=== PATIENT | female | born 2000 | race African-American/Black ===

== ENCOUNTER → 2020-05-13 | Emergency (ER) | payer OTHER ==
[~2020-05-13] VITALS: Ht 162.6 cm; Wt 74.8 kg
[2020-05-13 19:03] LABS: Basophils # (auto) 0.1 10 ^3/uL (0-0.2); Basophils % (auto) 0.7 % (0.0-2.0); Eosinophils # (auto) 0.2 10 ^3/uL (0-0.8); Eosinophils % (auto) 1.5 % (0.0-7.0); Hematocrit 41.6 % (36.0-46.0); Hemoglobin 13.4 g/dL (12.2-16.2); Lymphocytes # (auto) 2.6 10 ^3/uL (0.4-5.4); Lymphocytes % (auto) 19.6 % (10.0-50.0); Mean Corpuscular Hemoglobin 28.7 pg (28.0-32.0); Mean Corpuscular Hgb Conc. 32.3 g/dL (32.0-36.0); Mean Corpuscular Volume 88.9 fL (80.0-100.0); Monocytes # (auto) 1.1 10 ^3/uL (0-1.3); Monocytes % (auto) 8.1 % (0.0-12.0); Neutrophils # (auto) 9.2 10 ^3/uL (1.6-8.6); Neutrophils % (auto) 70.1 % (37.0-80.0); Platelet Count (auto) 400 10^3/uL (140-450); Red Blood Cells 4.68 10^6/uL (4.0-5.20); Red Cell Distribution Width 13.6 % (11.8-14.3); White Blood Cell 13.2 10^3/uL (4.4-10.8)
[2020-05-13 19:15] LABS: Urine Bacteria NONE SEEN /hpf (None Seen); Urine Blood Negative /uL (Negative); Urine Specific Gravity 1.012 (1.001-1.035); Urine WBC 2 /hpf (0 - 5)
[2020-05-13 19:21] LABS: Albumin 3.7 g/dL (3.4-5.0); Calcium 9.5 mg/dL (8.5-10.1); Potassium 3.7 mmol/L (3.5-5.1)
[2020-05-13 19:25] LABS: BUN/Creatinine Ratio 7.4; Bilirubin, Total 0.2 mg/dL (0.2-1.0); Total Protein 8.2 g/dL (6.4-8.2)
[2020-05-13 19:34] VITALS: BP 108/80
== END | disposition home or self-care (01) ==
LOC: ER 18:33
DX: O23.41 Unspecified infection of urinary tract in pregnancy, first trimester (principal); O20.0 Threatened abortion; O26.891 Other specified pregnancy related conditions, first trimester; R11.2 Nausea with vomiting, unspecified; R51 Headache; Z3A.10 10 weeks gestation of pregnancy
CPT/HCPCS: 36415; 76801; 80053; 81001; 83690; 84702; 85025

== ENCOUNTER 2020-06-10 12:43 | Emergency (ER) | payer OTHER ==
[~2020-06-10] VITALS: Ht 162.6 cm; Wt 74.4 kg
[2020-06-10 13:35] LABS: Basophils # (auto) 0.1 10 ^3/uL (0-0.2); Basophils % (auto) 0.8 % (0.0-2.0); Eosinophils # (auto) 0.2 10 ^3/uL (0-0.8); Eosinophils % (auto) 1.2 % (0.0-7.0); Hematocrit 38.5 % (36.0-46.0); Hemoglobin 12.6 g/dL (12.2-16.2); Lymphocytes # (auto) 2.3 10 ^3/uL (0.4-5.4); Lymphocytes % (auto) 17.1 % (10.0-50.0); Mean Corpuscular Hemoglobin 29.1 pg (28.0-32.0); Mean Corpuscular Hgb Conc. 32.9 g/dL (32.0-36.0); Mean Corpuscular Volume 88.4 fL (80.0-100.0); Monocytes # (auto) 0.9 10 ^3/uL (0-1.3); Monocytes % (auto) 6.7 % (0.0-12.0); Neutrophils % (auto) 74.2 % (37.0-80.0); Platelet Count (auto) 403 10^3/uL (140-450); Red Blood Cells 4.35 10^6/uL (4.0-5.20); Red Cell Distribution Width 13.4 % (11.8-14.3); White Blood Cell 13.5 10^3/uL (4.4-10.8)
[2020-06-10 15:46] VITALS: BP 125/73
== END 2020-06-10 14:40 | disposition home or self-care (01) ==
LOC: ER 12:43
DX: O20.0 Threatened abortion (principal); Z3A.10 10 weeks gestation of pregnancy
CPT/HCPCS: 36415; 76801; 84702; 85025

== ENCOUNTER 2024-03-30 17:00 | Emergency (ER) | payer MEDICAID, OTHER ==
[~2024-03-30] VITALS: Ht 162.6 cm; Wt 76.3 kg
[2024-03-30 18:27] LABS: Urine Bacteria None Seen /hpf (None Seen)
[2024-03-30 18:46] LABS: Urine Blood Negative /uL (Negative); Urine Clarity Cloudy (Clear); Urine Color Yellow (Yellow); Urine Mucus FEW (None Seen); Urine Protein, UAD 1+ (Negative); Urine Specific Gravity 1.032 (1.001-1.035); Urine Urobilinogen Normal (Negative); Urine WBC 1 /hpf (0 - 5); Urine pH 6.5 (5.0-9.0)
[2024-03-30 18:59] LABS: Amphetamine Screen, Urine Neg (NEGATIVE)
[2024-03-30 19:00] LABS: Barbiturate Scree,Urine Neg (NEGATIVE); Benzodiazephine Screen, Urine Neg (NEGATIVE); Cannabinoid Screen, Urine Neg (NEGATIVE); Cocaine Screen, Urine Neg (NEGATIVE); Opiate Scree,Urine Neg (NEGATIVE); Phencyclidine Screen, Urine Neg (NEGATIVE)
[2024-03-30 19:01] LABS: Basophils # (auto) 0.1 10 ^3/uL (0-0.2); Basophils % (auto) 0.4 % (0.0-2.0); Eosinophils # (auto) 0.1 10 ^3/uL (0-0.8); Eosinophils % (auto) 0.3 % (0.0-7.0); Hemoglobin 10.5 g/dL (12.2-16.2); Lymphocytes # (auto) 2.8 10 ^3/uL (0.4-5.4); Mean Corpuscular Hgb Conc. 30.9 g/dL (32.0-36.0); Mean Corpuscular Volume 74.4 fL (80.0-100.0); Monocytes # (auto) 1.1 10 ^3/uL (0-1.3); Monocytes % (auto) 5.8 % (0.0-12.0); Neutrophils # (auto) 14.6 10 ^3/uL (1.6-8.6); Neutrophils % (auto) 78.5 % (37.0-80.0); Red Blood Cells 4.57 10^6/uL (4.0-5.20); White Blood Cell 18.7 10^3/uL (4.4-10.8)
[2024-03-30 19:04] LABS: Red Cell Distribution Width 20.9 % (11.8-14.3)
[2024-03-30 19:19] LABS: Acetaminophen < 2.0 UG/ML (10.0-20.0)
[2024-03-30 19:21] LABS: Salicylate < 3.0 mg/dL (2.8-20.0)
[2024-03-30 19:27] LABS: Anisocytosis Slight
[2024-03-30 19:28] LABS: Hypochromia Slight; Platelet Estimate Adequate
[2024-03-30 20:12] LABS: Alanine Aminotransferase 16 U/L (7-40); Alkaline Phosphatase 53 U/L (46-116); Anion Gap 11 (5-15); Blood Alcohol 5.9 mg/dL (<10); Calcium 9.8 mg/dL (8.7-10.4); Carbon Dioxide 24 mmol/L (20-30); Chloride 102 mmol/L (98-107); Glucose 84 mg/dL (74-106); Potassium 3.9 mmol/L (3.5-5.1); Sodium 137 mmol/L (136-145)
[2024-03-30 20:13] LABS: Albumin 4.9 g/dL (3.2-4.8); Aspartate Aminotransferase 10 U/L (13-40); BUN/Creatinine Ratio 6.8 (10.0-20.0); Bilirubin, Total 0.4 mg/dL (0.2-1.0); Blood Urea Nitrogen 5 mg/dL (9-23); Total Protein 7.7 g/dL (5.7-8.2)
[2024-03-30 22:45] VITALS: BP 143/86; PULSE 75; RESP 14; TEMP 98.8; O2SAT 100
== END 2024-03-30 23:47 | disposition left against medical advice (07) ==
LOC: ER 17:00
DX: R55 Syncope and collapse (principal); R10.2 Pelvic and perineal pain; Z87.891 Personal history of nicotine dependence; Z79.899 Other long term (current) drug therapy
CPT/HCPCS: 36415; 80053; 80307; 80320; 80329; 81001; 84484; 84702; 85025

== ENCOUNTER 2025-05-01 10:23 | Emergency (ER) | payer MEDICAID, OTHER ==
[~2025-05-01] VITALS: Ht 162.6 cm; Wt 68.4 kg
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
[2025-05-01 11:33] LABS: Hematocrit 47.3 % (36.0-46.0); Hemoglobin 15.8 g/dL (12.2-16.2); Mean Corpuscular Hemoglobin 30.1 pg (28.0-32.0); Mean Corpuscular Volume 90.2 fL (80.0-100.0); Nucleated Red Blood Cells % 0.1 %
[2025-05-01 11:48] LABS: Alanine Aminotransferase 29 U/L (7-40); Alkaline Phosphatase 84 U/L (46-116); Anion Gap 12 (5-15); Calcium 9.7 mg/dL (8.7-10.4); Carbon Dioxide 26 mmol/L (20-31); Chloride 99 mmol/L (98-107); Potassium 4.6 mmol/L (3.5-5.1); Sodium 137 mmol/L (136-145)
[2025-05-01 11:51] LABS: Albumin 5.1 g/dL (3.2-4.8); BUN/Creatinine Ratio 5.8 (10.0-20.0); Bilirubin, Total 1.2 mg/dL (0.2-1.0); Blood Urea Nitrogen < 5 mg/dL (9-23); Glucose 106 mg/dL (74-106); Lipase 180 U/L (12-53); Total Protein 8.8 g/dL (5.7-8.2)
[2025-05-01 15:07] LABS: Urine Protein, UAD 2+ (Negative)
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
[2025-05-01] MEDS: ONDANSETRON HCL 4 MG/2 ML VIAL IV ONE ×3 (15:37→21:30)
[2025-05-01] MEDS: MORPHINE SULFATE 4 MG/ML SYR/VIAL IV ONE ×2 (15:37→17:28)
[2025-05-01] MEDS: SODIUM CHLORIDE 0.9% 2,000 ML IV ONE (15:37)
[2025-05-01] MEDS: LORazepam 2MG/ML-1ML VIAL IV ONE (15:37)
[2025-05-01] MEDS: PIPERACILLIN-TAZO 4.5GM 100 ML IV ONE (16:29)
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
[2025-05-01] MEDS: HYDROmorphone HCL 2 MG/ML VL/or syr IV ONE (21:30)
[2025-05-01 22:29] VITALS: PULSE 100; RESP 20; O2SAT 97
[2025-05-01 23:10] VITALS: BP 130/82; PULSE 98; RESP 20; TEMP 98.1; O2SAT 98
== END 2025-05-01 23:01 | disposition short-term general hospital (02) ==
LOC: ER 10:23
DX: S39.81XA Other specified injuries of abdomen, initial encounter (principal); K52.9 Noninfective gastroenteritis and colitis, unspecified; K85.90 Acute pancreatitis without necrosis or infection, unspecified; R11.2 Nausea with vomiting, unspecified; R07.81 Pleurodynia; X58.XXXA Exposure to other specified factors, initial encounter; Y93.89 Activity, other specified; Y92.89 Other specified places as the place of occurrence of the external cause; Y99.8 Other external cause status; F17.200 Nicotine dependence, unspecified, uncomplicated; F41.9 Anxiety disorder, unspecified
CPT/HCPCS: 36415; 70450; 71111; 71250; 72125; 72131; 74176; 80053; 81001; 82150; 83690; 85025; 96361; 96365; 96375; 96376; 99291; J1171; J2060; J2270; J2405; J2543; J7030

== ENCOUNTER 2025-08-03 21:53 | Inpatient (IN) | payer SELFPAY ==
[~2025-08-03] VITALS: Ht 162.6 cm; Wt 77.1 kg
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
[2025-08-03 22:53] LABS: Hematocrit 41.5 % (36.0-46.0); Hemoglobin 13.7 g/dL (12.2-16.2); Mean Corpuscular Hemoglobin 30.3 pg (28.0-32.0); Mean Corpuscular Volume 91.4 fL (80.0-100.0); Nucleated Red Blood Cells % 0.2 %
--- NOTE | 2025-08-03 22:53 | DVH ---
CLINICAL HISTORY: sob TECHNIQUE: AP view of the chest was obtained. WID: COMPARISON: CT CHEST WITHOUT CONTRAST on DOS: 05/01/25, XY RIBS BILATERAL on DOS: 05/01/25 FINDINGS: Lungs: clear Cardiomediastinal silhouette: normal in size Bones: No acute osseous abnormality. Imaged Upper Abdomen: unremarkable. IMPRESSION: NO ACUTE CARDIOPULMONARY PROCESS.
[2025-08-03 23:06] LABS: Urine Protein, UAD Negative (Negative)
[2025-08-03 23:12] LABS: Alanine Aminotransferase 17 U/L (7-40); Albumin 4.4 g/dL (3.2-4.8); Alkaline Phosphatase 101 U/L (46-116); Anion Gap 12 (5-15); BUN/Creatinine Ratio 6.9 (10.0-20.0); Calcium 9.1 mg/dL (8.7-10.4); Carbon Dioxide 27 mmol/L (20-31); Chloride 104 mmol/L (98-107); Glucose 90 mg/dL (74-106); Magnesium 2.2 mg/dL (1.6-2.6); Potassium 3.7 mmol/L (3.5-5.1); Sodium 143 mmol/L (136-145); Total Protein 7.9 g/dL (5.7-8.2)
[2025-08-03 23:13] LABS: Bilirubin, Total 0.3 mg/dL (0.2-1.0)
[2025-08-03 23:18] LABS: Blood Urea Nitrogen 6 mg/dL (9-23)
[2025-08-03 23:20] LABS: Amphetamine Screen, Urine Neg (NEGATIVE); Barbiturate Scree,Urine Neg (NEGATIVE); Benzodiazephine Screen, Urine Neg (NEGATIVE); Cannabinoid Screen, Urine Neg (NEGATIVE); Cocaine Screen, Urine Neg (NEGATIVE); Opiate Scree,Urine Neg (NEGATIVE); Phencyclidine Screen, Urine Neg (NEGATIVE)
[2025-08-03 23:22] LABS: Lactic Acid w/Reflex 2.5 mmol/L (0.4-2.0)
[2025-08-04] VITALS (9 sets, daily range): BP systolic 140–147; BP diastolic 91–103; PULSE 81–122; RESP 16–21; TEMP 98–98.7; O2SAT 99–100
[2025-08-04 00:04] LABS: INR 1.03 (0.9-1.15); Partial Thromboplastin Time 29.3 SEC (24.5-34.5); Prothrombin Time 10.9 sec (9.3-11.8)
[2025-08-04] MEDS: SODIUM CHLORIDE 0.9% 1,000 ML IV ONE ×2 (00:36→00:50)
[2025-08-04] MEDS: LACTATED RINGER'S 1,650 ML IV ONE (00:50)
[2025-08-04] MEDS: SODIUM CHLORIDE 0.9% 1,650 ML IV ONE (00:53)
[2025-08-04] MEDS ORDERED: VANCOMYCIN PER PHARMACY 0 MG IV SCH (01:00)
[2025-08-04] MEDS ORDERED: ONDANSETRON HCL 4 MG/2 ML VIAL IV PRN (01:00)
[2025-08-04] MEDS ORDERED: NITROGLYCERIN 0.4 MG SL TAB SL PRN (01:00)
[2025-08-04] MEDS ORDERED: DOCUSATE SOD 100 MG CAP PO PRN (01:00)
[2025-08-04] MEDS ORDERED: MORPHINE SULFATE INJ 2 MG/ml SYRG IV PRN (01:00)
[2025-08-04] MEDS ORDERED: ACETAMINOPHEN 325 MG TAB PO PRN (01:00)
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
[2025-08-04] MEDS: VANCOMYCIN 1GM/250ML KIT 250 ML IV ONE (01:50)
[2025-08-04 01:51] LABS: Rapid Strep A Screen-Throat Positive
[2025-08-04] MEDS: methylPREDNISolone SOD SUCC 125 MG/2 ML VL IV ONE (02:29)
[2025-08-04] MEDS: HYDROcodone-ACET 5/325MG TAB PO PRN (02:30)
[2025-08-04 04:21] LABS: Hematocrit 38.2 % (36.0-46.0); Hemoglobin 12.6 g/dL (12.2-16.2); Mean Corpuscular Hemoglobin 30.3 pg (28.0-32.0); Mean Corpuscular Volume 92.0 fL (80.0-100.0); Nucleated Red Blood Cells % 0.0 %
[2025-08-04 04:41] LABS: Alanine Aminotransferase 16 U/L (7-40); Albumin 4.1 g/dL (3.2-4.8); Alkaline Phosphatase 96 U/L (46-116); Anion Gap 11 (5-15); BUN/Creatinine Ratio 9.8 (10.0-20.0); Carbon Dioxide 24 mmol/L (20-31); Chloride 106 mmol/L (98-107); Glucose 85 mg/dL (74-106); Potassium 4.0 mmol/L (3.5-5.1); Sodium 141 mmol/L (136-145); Total Protein 7.3 g/dL (5.7-8.2)
[2025-08-04 04:56] LABS: Bilirubin, Total 0.3 mg/dL (0.2-1.0); Blood Urea Nitrogen 6 mg/dL (9-23); Calcium 7.8 mg/dL (8.7-10.4)
[2025-08-04] MEDS: SODIUM CHLOR 0.9% PF (SALINE LOCK) 10ML VIAL/SYR IV SCH (06:46)
[2025-08-04] MEDS: LEVALBUTEROL HCL 1.25 MG/3 ML NEB NEB SCH (06:53)
[2025-08-04] MEDS: ALBUTEROL SULF 2.5 MG/0.5ML(0.5%) NEB SOLN NEB ONE (08:16)
[2025-08-04] MEDS: IPRATROPIUM BROM 0.5 MG/2.5ML INH SOL NEB ONE (08:17)
[2025-08-04] MEDS: VANCOMYCIN 1.25GM/250ML 250 ML IV SCH (14:36)
[2025-08-04] MEDS: methylPREDNISolone SOD SUCC 40 MG/ML VL IV SCH (14:36)
[2025-08-04] MEDS: FAMOTIDINE (10MG/ML) 2ML VL IV SCH (14:36)
[2025-08-04] MEDS ORDERED: LORazepam 2MG/ML-1ML VIAL IV PRN (18:15)
[2025-08-05] MEDS ORDERED: FOLIC ACID 1 MG, MULTIPLE VITAMIN 10 ML, MAGNESIUM SULF SDV 50% 8 MEQ, THIAMINE INJ 100... INJ SCH (18:00)
--- NOTE | 2025-08-06 06:54 | ECG ---
[facility] Test Date: 2025-08-03 Test Time: 22:37:06 Pat Name: RADHA DICKERSON Department: ED Room: 0214T A Gender: F Coating Operator: : 2000 Requested By: CUONG COLVIN Order Number: [id number] Reading MD: Landon Mcneill Measurements Intervals [place] Rate: 123 P: 73 RI: 129 QRS: 85 QRSD: 94 T: 5 QT: 327 QTc: 468 Interpretive Statements Sinus tachycardia Electronically Signed On 08-09-2025 19:03:37 PST by Landon Mcneill Please click the below link to view image of tracing.
== END 2025-08-04 21:44 | disposition left against medical advice (07) | DRG 872 ==
LOC: ER 21:53 → EDBD 21:53 → OVERFLOW 08-04 00:57 → TELE-CENTR 08-04 18:20
PROVIDERS: ADMIT Nurse Practitioner Family; ATTEND Nurse Practitioner Family
DX: A41.9 Sepsis, unspecified organism (principal); J98.2 Interstitial emphysema; N39.0 Urinary tract infection, site not specified; J02.0 Streptococcal pharyngitis; F10.10 Alcohol abuse, uncomplicated; Z53.29 Procedure and treatment not carried out because of patient's decision for other reasons; Y90.9 Presence of alcohol in blood, level not specified; F17.200 Nicotine dependence, unspecified, uncomplicated; Z82.0 Family history of epilepsy and other diseases of the nervous system; Z83.3 Family history of diabetes mellitus; Z87.01 Personal history of pneumonia (recurrent)
CPT/HCPCS: 36415; 71045; 80053; 80202; 80307; 80320; 81001; 83605; 83735; 84484; 85025; 85610; 85730; 87040; 87880; 93005; 94640; 96365; 96367; 96375; 99291; G0378; J3490